=== PATIENT | male | born 1975 | race Hispanic/Latino ===

== ENCOUNTER 2023-09-18 10:24 | Emergency (ER) | payer OTHER | END 2023-09-18 11:34 | disposition home or self-care (01) | LOC: ERS 10:24 | DX: S80.01XA Contusion of right knee, initial encounter (principal); S49.91XA Unspecified injury of right shoulder and upper arm, initial encounter; W22.8XXA Striking against or struck by other objects, initial encounter; Y99.0 Civilian activity done for income or pay ==